=== PATIENT | female | born 1940 | race Caucasian/White ===

== ENCOUNTER → 2020-12-03 10:04 | Outpatient (BNVA) | payer MEDICARE, OTHER, SELFPAY | PROVIDERS: PCP Family Medicine; Referring Provider Family Medicine; Visit Provider Nurse Practitioner Adult Health | DX: G56.03 Carpal tunnel syndrome, bilateral upper limbs (principal); E11.9 Type 2 diabetes mellitus without complications | CPT/HCPCS: 95909; 99203; 99204 ==